=== PATIENT | female | born 1960 | race Caucasian/White ===

== ENCOUNTER 2020-09-29 19:59 | Emergency (ER) | payer BC ==
[~2020-09-29] VITALS: Ht 160 cm; Wt 73.0 kg
[2020-09-29] MEDS ORDERED: SILVER NITRATE APPLICATOR STICK TOP ONE (20:15)
[2020-09-29] MEDS ORDERED: AMLODIPINE 5MG TABLET PO ONE (21:00)
[2020-09-29] MEDS ORDERED: TRANEXAMIC ACID 1,000 MG/10 ML TP ONE (21:45)
[2020-09-30 00:36] VITALS: BP 152/70
== END 2020-09-30 01:49 | disposition home or self-care (01) ==
LOC: ER 19:59
DX: R04.0 Epistaxis (principal); I10 Essential (primary) hypertension; E11.9 Type 2 diabetes mellitus without complications
CPT/HCPCS: 93005; 99284

== ENCOUNTER 2020-10-01 01:35 | Emergency (ER) | payer BC ==
[~2020-10-01] VITALS: Ht 167.6 cm; Wt 68.0 kg
[2020-10-01] MEDS ORDERED: LOSARTAN POTASSIUM 50 MG TABLET PO ONE (02:15)
[2020-10-01] MEDS ORDERED: OXYMETAZOLINE HCL NASAL SPRAY 15ML BOTHNSTRLS SCH ×2 (02:30→09:00)
[2020-10-01] MEDS ORDERED: CLONIDINE 0.1MG TABLET PO ONE (02:45)
[2020-10-01 03:43] LABS: BASOPHILS % 0.2 % (0.0-2.0); EOSINOPHILS % 1.3 % (0.0-5.0); HEMATOCRIT. 36.4 % (36.0-48.0); HEMOGLOBIN. 12.1 g/dL (12.0-16.0); LYMPHOCYTES % 9.1 % (20.0-50.0); MEAN CORPUSCULAR HEMOGLOBIN 29.2 pg (28.0-32.0); MEAN CORPUSCULAR VOLUME 88.2 fL (81.0-99.0); MEAN PLATELET VOLUME 7.2 fl (7.4-10.4); MONOCYTES % 4.3 % (2.0-8.0); NEUTROPHILS % 85.1 % (40.0-76.0); PLATELET 304 x1000/uL (130-400); RED BLOOD CELL COUNT 4.13 mill/uL (4.2-5.4); RED CELL DISTRIBUTION WIDTH 13.6 % (11.6-14.6)
[2020-10-01 03:50] LABS: CHLORIDE 103 mEq/L (98-107)
[2020-10-01] MEDS ORDERED: POTASSIUM CHLORIDE 20MEQ TABLET SR PO ONE (04:15)
[2020-10-01 06:00] VITALS: BP 169/85
[2020-10-01] MEDS ORDERED: HYDRALAZINE 20MG/ML VIAL IV ONE (06:00)
[2020-10-02] MEDS ORDERED: AMOX-424 MT (07:48)
[2020-10-02] MEDS ORDERED: OXYM30SP26 BOTHNSTRLS (07:49)
== END 2020-10-01 06:34 | disposition home or self-care (01) ==
LOC: ER 01:49
DX: R04.0 Epistaxis (principal); I10 Essential (primary) hypertension; E11.9 Type 2 diabetes mellitus without complications
CPT/HCPCS: 36415; 80053; 84484; 85025; 93005; 99285

== ENCOUNTER 2020-10-01 21:00 | Emergency (ER) | payer BC ==
[~2020-10-01] VITALS: Ht 157.5 cm; Wt 77.0 kg
[2020-10-01 23:30] VITALS: BP 173/85
[2020-10-02] MEDS ORDERED: AMOX-424 MT (07:48)
[2020-10-02] MEDS ORDERED: OXYM30SP26 BOTHNSTRLS (07:49)
== END 2020-10-01 23:36 | disposition home or self-care (01) ==
LOC: ER 21:00
DX: R04.0 Epistaxis (principal); E11.9 Type 2 diabetes mellitus without complications; I10 Essential (primary) hypertension; E78.00 Pure hypercholesterolemia, unspecified
CPT/HCPCS: 93005; 99283

== ENCOUNTER 2020-10-02 05:15 | Emergency (ER) | payer BC ==
[~2020-10-02] VITALS: Ht 157.5 cm; Wt 75.0 kg
[2020-10-02] MEDS ORDERED: AMLODIPINE 5MG TABLET PO ONE (07:00)
[2020-10-02] MEDS ORDERED: AMOX-424 MT (07:48)
[2020-10-02] MEDS ORDERED: OXYM30SP26 BOTHNSTRLS (07:49)
[2020-10-02 08:37] LABS: BASOPHILS % 0.5 % (0.0-2.0); EOSINOPHILS % 0.2 % (0.0-5.0); HEMATOCRIT. 32.3 % (36.0-48.0); HEMOGLOBIN. 10.7 g/dL (12.0-16.0); MEAN CORPUSCULAR HEMOGLOBIN 29.1 pg (28.0-32.0); MEAN CORPUSCULAR VOLUME 88.1 fL (81.0-99.0); MONOCYTES % 4.8 % (2.0-8.0); NEUTROPHILS % 85.5 % (40.0-76.0); PLATELET 299 x1000/uL (130-400); RED BLOOD CELL COUNT 3.66 mill/uL (4.2-5.4); RED CELL DISTRIBUTION WIDTH 13.7 % (11.6-14.6)
[2020-10-02 08:40] LABS: CHLORIDE 105 mEq/L (98-107)
[2020-10-02 09:00] VITALS: BP 166/84
== END 2020-10-02 10:11 | disposition home or self-care (01) ==
LOC: ER 05:15
DX: R04.0 Epistaxis (principal); I16.0 Hypertensive urgency; I10 Essential (primary) hypertension; E11.9 Type 2 diabetes mellitus without complications
CPT/HCPCS: 36415; 80053; 85025; 99285; Z7610

== ENCOUNTER 2020-10-02 21:33 | Emergency (ER) | payer BC ==
[~2020-10-02] VITALS: Ht 160 cm; Wt 75.0 kg
[~2020-10-02 21:33] MED LIST: AMOX-424 MT; OXYM30SP26 BOTHNSTRLS
[2020-10-02] MEDS ORDERED: SODIUM CHLORIDE 0.9% 1,000 ML IV ONE (22:00)
[2020-10-02 22:41] LABS: HEMATOCRIT. 27.6 % (36.0-48.0); HEMOGLOBIN. 9.2 g/dL (12.0-16.0); MEAN CORPUSCULAR HEMOGLOBIN 29.3 pg (28.0-32.0); MEAN CORPUSCULAR VOLUME 87.9 fL (81.0-99.0); MEAN PLATELET VOLUME 7.1 fl (7.4-10.4); PLATELET 255 x1000/uL (130-400); RED BLOOD CELL COUNT 3.14 mill/uL (4.2-5.4); RED CELL DISTRIBUTION WIDTH 13.7 % (11.6-14.6)
[2020-10-02 22:48] LABS: CHLORIDE 107 mEq/L (98-107)
[2020-10-02 22:51] LABS: PROTHROMBIN TIME 10.9 sec (9.6-11.0)
[2020-10-02 22:59] LABS: PLATELET ESTIMATE NORMAL
[2020-10-02] MEDS ORDERED: POTASSIUM CHLORIDE 20MEQ TABLET SR PO SCH (23:00)
[2020-10-03] MEDS ORDERED: KCL 10MEQ/50ML PREMIX 50 ML IV SCH
[2020-10-03 02:00] VITALS: BP 162/75
== END 2020-10-03 04:30 | disposition home or self-care (01) ==
LOC: ER 21:33
DX: R55 Syncope and collapse (principal); R04.0 Epistaxis; E87.6 Hypokalemia; D64.9 Anemia, unspecified; I10 Essential (primary) hypertension; E11.9 Type 2 diabetes mellitus without complications; E86.0 Dehydration; Z79.899 Other long term (current) drug therapy; Z98.890 Other specified postprocedural states
CPT/HCPCS: 36415; 80053; 83735; 84484; 85025; 85610; 93005; 96361; 96365; 99285; J3480; J7030